=== PATIENT | male | born 1965 | race Two or more races ===

== ENCOUNTER 2017-04-12 19:41 | Inpatient (IN) | payer OTHER, MEDICAID ==
[~2017-04-12] VITALS: Ht 152.4 cm; Wt 65.7 kg
[~2017-04-12 19:41] MED LIST: AMLO10TA2 PO; ARTISOL OP; ASPI81TA27 PO; B-CO-9 OR; CALC0.25 PO; DOCU100T15 GT; ERGO400T PO; FER325T PO; FURO80TA3 PO; LEVEMIR SC; LOSA100T27 PO; METO-158 PO; OMEG300C7 OR; SEVE800T8 PO; SIMV10TA84 PO
[2017-04-12 22:19] LABS: Basophils # (auto) 0.1 uL; Basophils % (auto) 0.6 % (0.0-2.0); Eosinophils # (auto) 0.1 uL; Eosinophils % (auto) 0.5 % (0.0-7.0); Hematocrit 30.2 % (41.0-53.0); Hemoglobin 9.8 g/dL (13.5-17.5); Lymphocytes # (auto) 1.6 uL; Mean Corpuscular Hemoglobin 29.7 pg (28.0-32.0); Mean Corpuscular Hgb Conc. 32.3 g/dL (32.0-36.0); Mean Corpuscular Volume 92.1 fL (80.0-100.0); Monocytes # (auto) 1.1 uL; Monocytes % (auto) 6.4 % (0.0-12.0); Neutrophils # (auto) 14.4 uL; Neutrophils % (auto) 83.5 % (37.0-80.0); Platelet Count (auto) 414 10^3/uL (140-450); Red Blood Cells 3.28 10^6/uL (4.5-5.90); Red Cell Distribution Width 16.4 % (11.8-14.3); White Blood Cell 17.3 10^3/uL (4.4-10.8)
[2017-04-12 22:54] LABS: Albumin 1.9 g/dL (3.4-5.0); BUN/Creatinine Ratio 4.4; Bilirubin, Total 0.9 mg/dL (0.2-1.0); Calcium 8.2 mg/dL (8.5-10.1); Magnesium 2.2 mg/dL (1.6-2.6); Potassium 3.5 mmol/L (3.5-5.1); Total Protein 7.5 g/dL (6.4-8.2)
[2017-04-13] MEDS ORDERED: ONDANSETRON HCL 4 MG/2 ML VIAL IV ONE (01:30)
[2017-04-13] MEDS ORDERED: MORPHINE SULFATE 10 MG/ML INJ 1ML SDV IV ONE (01:30)
[2017-04-13] MEDS ORDERED: VANCOMYCIN PER PHARMACY 0 MG IV SCH (05:00)
[2017-04-13] MEDS ORDERED: DEXTROSE (50%) 50ML SYRG IV PRN (05:00)
[2017-04-13] MEDS ORDERED: ONDANSETRON HCL 4 MG/2 ML VIAL IV PRN (05:00)
[2017-04-13] MEDS ORDERED: ONDANSETRON HCL 4 MG/2 ML VIAL ONE (05:21)
[2017-04-13] MEDS: MORPHINE SULFATE 10 MG/ML INJ 1ML SDV IV PRN ×3 (05:28→12:00)
[2017-04-13] MEDS ORDERED: VANCOMYCIN 1GM/250ML 250 ML IV SCH (05:30)
[2017-04-13] MEDS ORDERED: PIPERACILLIN-TAZOB 2.25GM 50 ML IV SCH (06:00)
[2017-04-13] MEDS: InsuLIN REG 1unit/0.01ml Soln (100units/ml) SC SCH ×2 (06:59→11:25)
[2017-04-13] MEDS: ACCU-CHEK COMFORT CURVE STRIP VI SCH ×2 (06:59→11:25)
[2017-04-13 07:15] LABS: Basophils # (auto) 0 uL; Basophils % (auto) 0.3 % (0.0-2.0); Eosinophils # (auto) 0 uL; Hematocrit 33.2 % (41.0-53.0); Hemoglobin 10.4 g/dL (13.5-17.5); Lymphocytes % (auto) 7.4 % (10.0-50.0); Mean Corpuscular Hemoglobin 29.3 pg (28.0-32.0); Mean Corpuscular Hgb Conc. 31.4 g/dL (32.0-36.0); Mean Corpuscular Volume 93.3 fL (80.0-100.0); Monocytes # (auto) 0.6 uL; Monocytes % (auto) 4.7 % (0.0-12.0); Neutrophils # (auto) 11.3 uL; Neutrophils % (auto) 87.6 % (37.0-80.0); Platelet Count (auto) 303 10^3/uL (140-450); Red Blood Cells 3.56 10^6/uL (4.5-5.90); Red Cell Distribution Width 16.5 % (11.8-14.3)
[2017-04-13] MEDS ORDERED: VANCOMYCIN 1GM/250ML 250 ML IV ONE (07:30)
[2017-04-13 07:47] LABS: BUN/Creatinine Ratio 4.7; Bilirubin, Total 0.8 mg/dL (0.2-1.0); Calcium 8.4 mg/dL (8.5-10.1); Potassium 4.3 mmol/L (3.5-5.1); Total Protein 7.8 g/dL (6.4-8.2)
[2017-04-13] MEDS: SEVELAMER 800 MG TAB PO SCH ×2 (08:00→12:17)
[2017-04-13] MEDS ORDERED: OMEP20CA74 PO (08:53)
[2017-04-13] MEDS ORDERED: LATA0.0015 EACHEYE (08:53)
[2017-04-13] MEDS ORDERED: ATOR20TA50 PO (08:53)
[2017-04-13] MEDS ORDERED: CINA30TA2 PO (08:53)
[2017-04-13 09:33] VITALS: BP 138/61
[2017-04-13 09:36] LABS: INR 1.32 (0.9-1.15); Partial Thromboplastin Time 30.6 sec (22.64-33.71); Prothrombin Time 14.4 sec (9.37-12.3)
[2017-04-13] MEDS ORDERED: METOPROLOL TARTRATE 50 MG TAB PO SCH (10:00)
[2017-04-13] MEDS ORDERED: LOSARTAN POTASSIUM 50 MG TAB PO SCH (10:00)
[2017-04-13] MEDS ORDERED: amLODIPine BESYLATE 5 MG TAB PO SCH (10:00)
[2017-04-13 13:20] VITALS: BP 121/69
[2017-04-13] MEDS ORDERED: INSULIN DETEMIR(LEVEMIR) 1unit/0.01ml Soln (100units/ml) SC SCH (22:00)
[2017-04-14] MEDS ORDERED: SODIUM CHL 0.9% 1000 ML BAG XX ONE (10:15)
[2017-04-14] MEDS ORDERED: EPOETIN ALFA 10,000 UNIT/1 ML VIAL IV ONE (10:15)
== END 2017-04-13 13:45 | disposition short-term general hospital (02) | DRG 919 ==
LOC: EDBD 19:41 → ER 19:41 → TELE 19:42
PROVIDERS: ADMIT Nurse Practitioner Family; ATTEND Family Medicine
DX: K91.872 Postprocedural seroma of a digestive system organ or structure following a digestive system procedure (principal); N18.6 End stage renal disease; E11.22 Type 2 diabetes mellitus with diabetic chronic kidney disease; I12.0 Hypertensive chronic kidney disease with stage 5 chronic kidney disease or end stage renal disease; R18.8 Other ascites; K86.1 Other chronic pancreatitis; J98.11 Atelectasis; T81.4XXA Infection following a procedure, initial encounter; L02.818 Cutaneous abscess of other sites; R10.9 Unspecified abdominal pain; K91.870 Postprocedural hematoma of a digestive system organ or structure following a digestive system procedure; D64.9 Anemia, unspecified; D72.829 Elevated white blood cell count, unspecified; Z79.82 Long term (current) use of aspirin; Z79.899 Other long term (current) drug therapy; Z82.49 Family history of ischemic heart disease and other diseases of the circulatory system; Z83.3 Family history of diabetes mellitus; Z90.49 Acquired absence of other specified parts of digestive tract; Z99.2 Dependence on renal dialysis; Y83.9 Surgical procedure, unspecified as the cause of abnormal reaction of the patient, or of later complication, without mention of misadventure at the time of the procedure
CPT/HCPCS: 36415; 74176; 80053; 82150; 82962; 83690; 83735; 84484; 85025; 85610; 85730; 87040; 93005; 96365; 96367; 96375; J2405; J2543

== ENCOUNTER 2017-04-17 13:31 | Inpatient (IN) | payer OTHER, MEDICAID ==
[~2017-04-17] VITALS: Ht 177.8 cm; Wt 61.0 kg
[~2017-04-17 13:31] MED LIST changes: +ATOR20TA50 PO; +CINA30TA2 PO; +LATA0.0015 EACHEYE; +OMEP20CA74 PO; -SIMV10TA84 PO
[2017-04-17] MEDS ORDERED: MORPHINE SULFATE 10 MG/ML INJ 1ML SDV IV ONE ×2 (14:30→17:45)
[2017-04-17] MEDS ORDERED: ONDANSETRON HCL 4 MG/2 ML VIAL IV ONE ×2 (14:30→17:45)
[2017-04-17 14:48] LABS: Hematocrit 27.3 % (41.0-53.0); Hemoglobin 8.6 g/dL (13.5-17.5); Mean Corpuscular Hemoglobin 29.6 pg (28.0-32.0); Mean Corpuscular Hgb Conc. 31.6 g/dL (32.0-36.0); Mean Corpuscular Volume 93.7 fL (80.0-100.0); Platelet Count (auto) 218 10^3/uL (140-450); Red Blood Cells 2.92 10^6/uL (4.5-5.90); Red Cell Distribution Width 16.6 % (11.8-14.3); White Blood Cell 6.5 10^3/uL (4.4-10.8)
[2017-04-17 14:56] LABS: Band Neutrophils % (manual) 0; Basophils % (manual) 0 (0.0-2.0); Blast Cells 0; Eosinophils % (manual) 0 (0-7); Metamyelocytes % 0; Myelocytes % 0; Promyelocytes % 0; Reactive Lymphocytes 0
[2017-04-17 15:01] LABS: INR 1.78 (0.9-1.15); Partial Thromboplastin Time 34.1 sec (22.64-33.71); Prothrombin Time 19.5 sec (9.37-12.3)
[2017-04-17 15:13] LABS: Alanine Aminotransferase 12 U/L (16-61); Alkaline Phosphatase 444 U/L (45-117); Anion Gap 13 (5-15); Aspartate Aminotransferase 17 U/L (15-37); BUN/Creatinine Ratio 5.5; Bilirubin, Total 0.4 mg/dL (0.2-1.0); Blood Urea Nitrogen 46 mg/dL (7-18); Carbon Dioxide 22 mmol/L (21-32); Chloride 98 mmol/L (98-107); GFR African American 9 mL/min; GFR Non-African American 7 mL/min; Glucose 170 mg/dL (74-106); Lipase 107 U/L (73-393); Potassium 4.2 mmol/L (3.5-5.1); Sodium 133 mmol/L (136-145); Total Protein 5.1 g/dL (6.4-8.2)
[2017-04-17 16:26] LABS: Lymphocytes % (manual) 5 (10.0-50.0); Monocytes % (manual) 2 (0-12)
[2017-04-17] MEDS ORDERED: ONDANSETRON HCL 4 MG/2 ML VIAL IV PRN (17:30)
[2017-04-17] MEDS ORDERED: MORPHINE SULF INJ 2 MG/ML SYRINGE 1ML IV PRN ×2 (17:30)
[2017-04-17] MEDS ORDERED: NITROGLYCERIN 0.4 MG SL TAB SL PRN (17:30)
[2017-04-17] MEDS ORDERED: ACETAMINOPHEN 325 MG TAB PO PRN (17:30)
[2017-04-17] MEDS ORDERED: ASPirin-EC 81 mg tab PO ONE (18:00)
[2017-04-17] MEDS ORDERED: GASTROGRAFIN 30 ML SOL ONE (18:01)
[2017-04-17] MEDS ORDERED: HYDROmorphone HCL 2 MG TAB PO ONE (19:45)
[2017-04-17] MEDS ORDERED: SODIUM CHLORIDE 0.9% 1,000 ML IV ONE (19:45)
[2017-04-17 19:55] VITALS: BP 98/66
[2017-04-17] MEDS ORDERED: PERITONEAL DIALYSIS 2.5% SOLN 2,000 ML IP ONE (20:45)
[2017-04-17] MEDS ORDERED: cefTRIAXone 1GM/10ml IVPUSH 10 ML IV ONE (21:30)
[2017-04-17] MEDS ORDERED: metroNIDAZOLE 500MG/100ML 100 ML IV ONE (21:30)
[2017-04-17] MEDS ORDERED: PIPERACILLIN-TAZOB 3.375GM 50 ML IV ONE (21:45)
[2017-04-17] MEDS ORDERED: SODIUM CHLORIDE 0.9% 1,000 ML IV SCH (21:45)
[2017-04-17 22:00] VITALS: BP 98/66
[2017-04-17] MEDS: ATORVASTATIN 20 MG TAB PO SCH (22:00)
[2017-04-17] MEDS: LATANOPROST 0.005 % OPTH(EYE) SOL 2.5ML EACHEYE SCH (22:00)
[2017-04-17] MEDS: METOPROLOL TARTRATE 50 MG TAB PO SCH (22:00)
[2017-04-17] MEDS: INSULIN LANTUS (GLARGINE) 1 /0.01ml (100units/ml) SC SCH (22:00)
[2017-04-17] MEDS: ARTIFICIAL TEARS 15ml OP SCH (22:00)
[2017-04-17] MEDS: FERROUS SULFATE 325 MG TAB PO SCH (22:00)
[2017-04-17 22:50] LABS: Albumin 1.2 g/dL (3.4-5.0); BUN/Creatinine Ratio 5.7; Calcium 7.6 mg/dL (8.5-10.1); Potassium 3.7 mmol/L (3.5-5.1)
[2017-04-17 22:51] LABS: Basophils # (auto) 0 uL; Basophils % (auto) 0.1 % (0.0-2.0); Eosinophils # (auto) 0 uL; Eosinophils % (auto) 0.1 % (0.0-7.0); Hemoglobin 10.1 g/dL (13.5-17.5); Lymphocytes # (auto) 0.4 uL; Mean Corpuscular Hemoglobin 30.3 pg (28.0-32.0); Mean Corpuscular Hgb Conc. 31.7 g/dL (32.0-36.0); Mean Corpuscular Volume 95.7 fL (80.0-100.0); Monocytes # (auto) 0.3 uL; Monocytes % (auto) 3.5 % (0.0-12.0); Neutrophils # (auto) 8.3 uL; Neutrophils % (auto) 92.3 % (37.0-80.0); Platelet Count (auto) 267 10^3/uL (140-450); Red Blood Cells 3.34 10^6/uL (4.5-5.90)
[2017-04-17 22:53] LABS: Bilirubin, Total 0.6 mg/dL (0.2-1.0); Total Protein 5.4 g/dL (6.4-8.2)
[2017-04-17 23:00] LABS: INR 1.74 (0.9-1.15); Partial Thromboplastin Time 34.8 sec (22.64-33.71); Prothrombin Time 19.1 sec (9.37-12.3)
[2017-04-17 23:40] VITALS: BP 119/96
[2017-04-18] VITALS (84 sets, daily range): BP systolic 81–145; BP diastolic 30–94
[2017-04-18] MEDS: PIPERACILLIN-TAZOB 3.375GM 50 ML IV SCH ×5 (00:50→20:36)
[2017-04-18] MEDS ORDERED: VANCOMYCIN 1GM/250ML 250 ML IV ONE (01:15)
[2017-04-18] MEDS: HYDROmorphone HCL 2 MG/ML VL IV PRN ×3 (02:05→18:44)
[2017-04-18 04:10] LABS: Platelet Count (auto) 300 10^3/uL (140-450)
[2017-04-18 04:13] LABS: Hematocrit 32.3 % (41.0-53.0); Hemoglobin 9.9 g/dL (13.5-17.5); Mean Corpuscular Hemoglobin 29.6 pg (28.0-32.0); Mean Corpuscular Hgb Conc. 30.5 g/dL (32.0-36.0); Red Blood Cells 3.33 10^6/uL (4.5-5.90); Red Cell Distribution Width 17.1 % (11.8-14.3); White Blood Cell 15.3 10^3/uL (4.4-10.8)
[2017-04-18 04:21] LABS: Basophils % (manual) 0 (0.0-2.0); Blast Cells 0; Eosinophils % (manual) 0 (0-7); Myelocytes % 0; Promyelocytes % 0; Reactive Lymphocytes 0
[2017-04-18 04:24] LABS: BUN/Creatinine Ratio 5.3; Calcium 7.5 mg/dL (8.5-10.1); Magnesium 1.8 mg/dL (1.6-2.6); Phosphorus 6.3 mg/dL (2.5-4.90); Potassium 4.3 mmol/L (3.5-5.1)
[2017-04-18] MEDS ORDERED: SODIUM BICARBONATE 8.4% INJ 50ML SYRINGE ONE (05:26)
[2017-04-18] MEDS ORDERED: phytonadione 10 MG in SODIUM CHL 0.9% 50 ML IV ONE (05:45)
[2017-04-18] MEDS ORDERED: SODIUM BICARBONATE 8.4 % INJ 50ML VIAL IV ONE (05:47)
[2017-04-18] MEDS: NOREPINEPHRINE 8 MG/250ML KIT 250 ML IV SCH (05:47)
[2017-04-18] MEDS ORDERED: SODIUM BICARBONATE 50ML VIAL 50 ML in SODIUM CHLORIDE 0.9% 1,000 ML IV SCH (06:00)
[2017-04-18] MEDS ORDERED: PHYTONADIONE (VIT K)10 MG/ML 1ML VIAL SUBCUT ONE (06:00)
[2017-04-18 06:16] LABS: Band Neutrophils % (manual) 24; Lymphocytes % (manual) 3 (10.0-50.0); Metamyelocytes % 2; Monocytes % (manual) 2 (0-12)
[2017-04-18] MEDS: metroNIDAZOLE 500MG/100ML 100 ML IV SCH ×3 (06:17→21:45)
[2017-04-18] MEDS ORDERED: HYDROmorphone HCL 2 MG/ML VL ONE (07:05)
[2017-04-18] MEDS ORDERED: fentaNYL CITRATE 0 ML ONE (07:05)
[2017-04-18] MEDS ORDERED: MIDAZOLAM HCL 1MG/1ML-2 ML VIAL ONE (07:05)
[2017-04-18] MEDS ORDERED: KETAMINE HCL 0 ML ONE (07:05)
[2017-04-18] MEDS ORDERED: fentaNYL CITRATE 100 MCG/2 ML VL ONE (07:05)
[2017-04-18] MEDS ORDERED: ROCURONIUM 10MG/ML 10ML VIAL IV ONE (07:06)
[2017-04-18] MEDS ORDERED: cefTRIAXone 1GM/10ml IVPUSH 10 ML IV SCH (09:00)
[2017-04-18] MEDS: PANTOPRAZOLE 40 MG TAB PO SCH (10:00)
[2017-04-18] MEDS ORDERED: FUROSEMIDE 20 MG TAB PO SCH (10:00)
[2017-04-18] MEDS: CALCITRIOL 0.25 MCG CAP PO SCH (10:00)
[2017-04-18] MEDS: METOPROLOL TARTRATE 50 MG TAB PO SCH ×2 (10:00→22:00)
[2017-04-18] MEDS: amLODIPine BESYLATE 5 MG TAB PO SCH (10:00)
[2017-04-18] MEDS: ARTIFICIAL TEARS 15ml OP SCH ×2 (10:00→22:00)
[2017-04-18] MEDS: ASPirin-EC 81 mg tab PO SCH (10:00)
[2017-04-18] MEDS: LOSARTAN POTASSIUM 50 MG TAB PO SCH (10:00)
[2017-04-18] MEDS ORDERED: SODIUM CHLORIDE 0.9% 1,000 ML IV ONE (10:30)
[2017-04-18] MEDS ORDERED: EPOETIN ALFA 10,000 UNIT/1 ML VIAL IV ONE (11:30)
[2017-04-18] MEDS ORDERED: PERITONEAL DIALYSIS 2.5% IP ONE (12:00)
[2017-04-18] MEDS ORDERED: GASTROGRAFIN 30 ML SOL ONE (15:08)
[2017-04-18] MEDS ORDERED: DEXTROSE (50%) 50ML SYRG IV PRN (17:45)
[2017-04-18] MEDS: InsuLIN REG 1unit/0.01ml Soln (100units/ml) SC SCH ×2 (18:00→23:59)
[2017-04-18] MEDS: ACCU-CHEK COMFORT CURVE STRIP VI SCH ×2 (18:00→23:59)
[2017-04-18] MEDS: ATORVASTATIN 20 MG TAB PO SCH (22:00)
[2017-04-18] MEDS: INSULIN LANTUS (GLARGINE) 1 /0.01ml (100units/ml) SC SCH (22:00)
[2017-04-18] MEDS: LATANOPROST 0.005 % OPTH(EYE) SOL 2.5ML EACHEYE SCH (22:00)
[2017-04-18] MEDS: FERROUS SULFATE 325 MG TAB PO SCH (22:00)
[2017-04-19] VITALS (75 sets, daily range): BP systolic 84–139; BP diastolic 38–60
[2017-04-19] MEDS: PIPERACILLIN-TAZOB 3.375GM 50 ML IV SCH ×3 (02:53→15:39)
[2017-04-19] MEDS: NOREPINEPHRINE 8 MG/250ML KIT 250 ML IV SCH (03:00)
[2017-04-19 05:03] LABS: Hematocrit 30.6 % (41.0-53.0); Hemoglobin 9.7 g/dL (13.5-17.5); Mean Corpuscular Hemoglobin 29.5 pg (28.0-32.0); Mean Corpuscular Hgb Conc. 31.8 g/dL (32.0-36.0); Mean Corpuscular Volume 92.9 fL (80.0-100.0); Platelet Count (auto) 145 10^3/uL (140-450); Red Blood Cells 3.29 10^6/uL (4.5-5.90); Red Cell Distribution Width 16.9 % (11.8-14.3); White Blood Cell 29.1 10^3/uL (4.4-10.8)
[2017-04-19 05:14] LABS: Basophils % (manual) 0 (0.0-2.0); Blast Cells 0; Metamyelocytes % 0; Myelocytes % 0; Promyelocytes % 0; Reactive Lymphocytes 0
[2017-04-19 05:18] LABS: BUN/Creatinine Ratio 5.1; Calcium 7.7 mg/dL (8.5-10.1); Potassium 4.8 mmol/L (3.5-5.1)
[2017-04-19] MEDS: HYDROmorphone HCL 2 MG/ML VL IV PRN ×2 (05:18→16:45)
[2017-04-19] MEDS: InsuLIN REG 1unit/0.01ml Soln (100units/ml) SC SCH ×3 (06:00→18:30)
[2017-04-19] MEDS: ACCU-CHEK COMFORT CURVE STRIP VI SCH ×3 (06:10→18:30)
[2017-04-19] MEDS: metroNIDAZOLE 500MG/100ML 100 ML IV SCH ×2 (06:10→14:24)
[2017-04-19 07:16] LABS: Band Neutrophils % (manual) 22; Eosinophils % (manual) 1 (0-7); Lymphocytes % (manual) 4 (10.0-50.0); Monocytes % (manual) 5 (0-12)
[2017-04-19] MEDS: amLODIPine BESYLATE 5 MG TAB PO SCH (10:00)
[2017-04-19] MEDS: LOSARTAN POTASSIUM 50 MG TAB PO SCH (10:00)
[2017-04-19] MEDS: METOPROLOL TARTRATE 50 MG TAB PO SCH (10:00)
[2017-04-19] MEDS ORDERED: VANCOMYCIN PER PHARMACY 0 MG IV SCH (10:15)
[2017-04-19] MEDS: ASPirin-EC 81 mg tab PO SCH (10:56)
[2017-04-19] MEDS: ARTIFICIAL TEARS 15ml OP SCH (10:56)
[2017-04-19] MEDS: CALCITRIOL 0.25 MCG CAP PO SCH (10:56)
[2017-04-19] MEDS: PANTOPRAZOLE 40 MG TAB PO SCH (10:56)
[2017-04-19] MEDS ORDERED: VANCOMYCIN 1GM/250ML 250 ML IV ONE (11:00)
[2017-04-19] MEDS ORDERED: PERITONEAL DIALYSIS IP ONE (14:45)
[2017-04-19] MEDS: ALBUMIN 25% 100 ML IV SCH ×2 (15:00→16:05)
== END 2017-04-19 18:48 | disposition short-term general hospital (02) | DRG 871 ==
LOC: EDBD 13:31 → EDSEX 13:31 → ER 13:31 → TELE 13:32 → TELE-WESTW 19:55 → ICU WEST 23:41
PROVIDERS: ADMIT Nurse Practitioner Acute Care; ATTEND Nurse Practitioner Acute Care
PROC: 30233L1 Transfusion of Nonautologous Fresh Plasma into Peripheral Vein, Percutaneous Approach (ICD-10-PCS; principal; 2017-04-18)
PROC: 30233K1 Transfusion of Nonautologous Frozen Plasma into Peripheral Vein, Percutaneous Approach (ICD-10-PCS; 2017-04-18)
PROC: 3E1M39Z Irrigation of Peritoneal Cavity using Dialysate, Percutaneous Approach (ICD-10-PCS; 2017-04-18)
PROC: 0D9W3ZZ Drainage of Peritoneum, Percutaneous Approach (ICD-10-PCS; 2017-04-19)
DX: A41.9 Sepsis, unspecified organism (principal); K65.2 Spontaneous bacterial peritonitis; R57.9 Shock, unspecified; I12.0 Hypertensive chronic kidney disease with stage 5 chronic kidney disease or end stage renal disease; E11.22 Type 2 diabetes mellitus with diabetic chronic kidney disease; N18.6 End stage renal disease; E87.1 Hypo-osmolality and hyponatremia; R18.8 Other ascites; E88.09 Other disorders of plasma-protein metabolism, not elsewhere classified; Z99.2 Dependence on renal dialysis; E78.5 Hyperlipidemia, unspecified; H40.9 Unspecified glaucoma; I25.10 Atherosclerotic heart disease of native coronary artery without angina pectoris; D63.8 Anemia in other chronic diseases classified elsewhere; K21.9 Gastro-esophageal reflux disease without esophagitis; Z82.49 Family history of ischemic heart disease and other diseases of the circulatory system; Z83.3 Family history of diabetes mellitus; Z90.49 Acquired absence of other specified parts of digestive tract; Z79.899 Other long term (current) drug therapy; Z79.82 Long term (current) use of aspirin
CPT/HCPCS: 36415; 36430; 36600; 71045; 74018; 74176; 80048; 80053; 82805; 82962; 83605; 83690; 83735; 84100; 84484; 85007; 85025; 85027; 85610; 85730; 86850; 86900; 86901; 87040; 87077; 87081; 87186; 87205; 89051; 90935; 96374; 96375; 96376; J0885; J2250; J2405; J2543; J3430; J3490

== ENCOUNTER 2017-05-23 17:19 | Inpatient (IN) | payer OTHER, MEDICAID ==
[~2017-05-23] VITALS: Ht 165.1 cm; Wt 54.5 kg
[2017-05-23] MEDS ORDERED: SODIUM CHLORIDE 0.9% 500 ML IVB ONE ×2 (18:48→20:17)
[2017-05-23 19:29] LABS: Eosinophils # (auto) 0 uL; Hemoglobin 8.2 g/dL (13.5-17.5); Mean Corpuscular Hemoglobin 28.8 pg (28.0-32.0)
[2017-05-23 19:31] LABS: Basophils # (auto) 0.1 uL; Basophils % (auto) 0.3 % (0.0-2.0); Hematocrit 25.7 % (41.0-53.0); Lymphocytes # (auto) 0.9 uL; Lymphocytes % (auto) 4.9 % (10.0-50.0); Mean Corpuscular Hgb Conc. 31.9 g/dL (32.0-36.0); Mean Corpuscular Volume 90.4 fL (80.0-100.0); Monocytes # (auto) 1.3 uL; Monocytes % (auto) 7.2 % (0.0-12.0); Neutrophils # (auto) 16.1 uL; Neutrophils % (auto) 87.6 % (37.0-80.0); Platelet Count (auto) 335 10^3/uL (140-450); Red Blood Cells 2.84 10^6/uL (4.5-5.90); Red Cell Distribution Width 16.8 % (11.8-14.3); White Blood Cell 18.4 10^3/uL (4.4-10.8)
[2017-05-23 19:45] LABS: INR 1.2 (0.9-1.15); Partial Thromboplastin Time 31.7 sec (22.64-33.71); Prothrombin Time 13.1 sec (9.37-12.3)
[2017-05-23 20:12] LABS: Albumin 1.1 g/dL (3.4-5.0); Bilirubin, Total 0.7 mg/dL (0.2-1.0); Calcium 7.2 mg/dL (8.5-10.1); Magnesium 1.9 mg/dL (1.6-2.6); Total Protein 6.8 g/dL (6.4-8.2)
[2017-05-23 20:16] LABS: Potassium 2.7 mmol/L (3.5-5.1)
[2017-05-23] MEDS ORDERED: ONDANSETRON HCL 4 MG/2 ML VIAL IV ONE (22:45)
[2017-05-23] MEDS ORDERED: POTASSIUM CHL 20MEQ/100ML 100 ML IV ONE (22:45)
[2017-05-23] MEDS ORDERED: MORPHINE SULFATE 4 MG/ML SYR/VIAL IV ONE (22:45)
[2017-05-23] MEDS ORDERED: cefTRIAXone 1GM/10ml IVPUSH 10 ML IV ONE (22:45)
[2017-05-23] MEDS ORDERED: CALCIUM GLUC 4.65meq/50ml D5AE 50 ML IV ONE (23:15)
[2017-05-23] MEDS ORDERED: VANCOMYCIN PER PHARMACY 0 MG IV SCH (23:15)
[2017-05-23] MEDS ORDERED: ATORVASTATIN 20 MG TAB PO ONE (23:15)
[2017-05-23] MEDS ORDERED: NITROGLYCERIN 0.4 MG SL TAB SL PRN (23:15)
[2017-05-23] MEDS ORDERED: ACETAMINOPHEN 325 MG TAB PO PRN (23:15)
[2017-05-23] MEDS ORDERED: TEMAZEPAM 15 MG CAP PO PRN (23:15)
[2017-05-23] MEDS ORDERED: ONDANSETRON HCL 4 MG/2 ML VIAL IV PRN (23:15)
[2017-05-23] MEDS ORDERED: MORPHINE SULFATE 4 MG/ML SYR/VIAL IV PRN (23:15)
[2017-05-23] MEDS ORDERED: metroNIDAZOLE 500MG/100ML 100 ML IV ONE (23:15)
[2017-05-23] MEDS ORDERED: DEXTROSE (50%) 50ML SYRG IV PRN (23:15)
[2017-05-23] MEDS ORDERED: ALBUMIN 5% 250 ML IV ONE (23:30)
[2017-05-23] MEDS ORDERED: VANCOMYCIN 1GM/250ML 250 ML IV SCH (23:45)
[2017-05-23] MEDS: SODIUM CHLORIDE 0.9% 1,000 ML IV SCH (23:49)
[2017-05-24] MEDS: POTASSIUM CHL 20MEQ/100ML 100 ML IV SCH ×2 (01:21→04:58)
[2017-05-24] MEDS: ACCU-CHEK COMFORT CURVE STRIP VI SCH ×4 (01:21→18:01)
[2017-05-24] MEDS: InsuLIN REG 1unit/0.01ml Soln (100units/ml) SC SCH ×4 (01:22→18:00)
[2017-05-24 04:27] LABS: Basophils # (auto) 0 uL; Basophils % (auto) 0.2 % (0.0-2.0); Eosinophils # (auto) 0 uL; Eosinophils % (auto) 0.2 % (0.0-7.0); Hematocrit 24.4 % (41.0-53.0); Hemoglobin 7.8 g/dL (13.5-17.5); Lymphocytes # (auto) 0.9 uL; Lymphocytes % (auto) 13.6 % (10.0-50.0); Mean Corpuscular Hemoglobin 29.6 pg (28.0-32.0); Mean Corpuscular Hgb Conc. 31.9 g/dL (32.0-36.0); Mean Corpuscular Volume 92.6 fL (80.0-100.0); Monocytes # (auto) 0.6 uL; Monocytes % (auto) 9.3 % (0.0-12.0); Neutrophils # (auto) 5.3 uL; Neutrophils % (auto) 76.7 % (37.0-80.0); Platelet Count (auto) 202 10^3/uL (140-450); Red Blood Cells 2.63 10^6/uL (4.5-5.90); Red Cell Distribution Width 17.2 % (11.8-14.3); White Blood Cell 6.9 10^3/uL (4.4-10.8)
[2017-05-24 04:44] LABS: Albumin 1.5 g/dL (3.4-5.0); Calcium 7.6 mg/dL (8.5-10.1); Potassium 3.3 mmol/L (3.5-5.1)
[2017-05-24 04:47] LABS: Bilirubin, Total 0.7 mg/dL (0.2-1.0); Total Protein 6.9 g/dL (6.4-8.2)
[2017-05-24] MEDS: HYDROcodone-ACET 5/325MG TAB PO PRN ×3 (04:53→21:23)
[2017-05-24] MEDS ORDERED: POTASSIUM CHL 20MEQ/100ML 100 ML IV ONE (04:55)
[2017-05-24] MEDS ORDERED: metroNIDAZOLE 500MG/100ML 100 ML IV SCH (06:00)
[2017-05-24] MEDS ORDERED: DEXTROSE 10% 1,000 ML IV ONE (06:45)
[2017-05-24] MEDS ORDERED: VANCOMYCIN 1GM/250ML 250 ML IV ONE (09:00)
[2017-05-24] MEDS: PANTOPRAZOLE 40 MG/10 ML VIAL IV SCH (09:23)
[2017-05-24] MEDS: SEVELAMER 800 MG TAB PO SCH ×3 (09:23→18:10)
[2017-05-24] MEDS ORDERED: FUROSEMIDE 40 MG TAB PO SCH (10:00)
[2017-05-24] MEDS: PIPERACILLIN-TAZOB 2.25GM 50 ML IV SCH ×2 (11:21→21:15)
[2017-05-24] MEDS: metroNIDAZOLE 500MG/100ML 100 ML IV SCH ×2 (14:16→18:10)
[2017-05-24] MEDS: SODIUM CHLORIDE 0.9% 1,000 ML IV SCH (15:35)
[2017-05-24 17:30] VITALS: BP 120/79
[2017-05-24] MEDS: ATORVASTATIN 20 MG TAB PO SCH (21:14)
[2017-05-24 23:51] VITALS: BP 127/76
[2017-05-25] MEDS: ACCU-CHEK COMFORT CURVE STRIP VI SCH ×4 (00:23→19:00)
[2017-05-25] MEDS ORDERED: MORPHINE SULFATE 4 MG/ML SYR/VIAL IV PRN (01:15)
[2017-05-25] MEDS: metroNIDAZOLE 500MG/100ML 100 ML IV SCH ×3 (02:53→18:59)
[2017-05-25 03:52] VITALS: BP 101/66
[2017-05-25] MEDS: InsuLIN REG 1unit/0.01ml Soln (100units/ml) SC SCH ×4 (05:32→18:00)
[2017-05-25 07:14] LABS: BUN/Creatinine Ratio 5.7; Bilirubin, Total 0.6 mg/dL (0.2-1.0); Calcium 7.4 mg/dL (8.5-10.1); Potassium 3.7 mmol/L (3.5-5.1); Total Protein 5.5 g/dL (6.4-8.2)
[2017-05-25] MEDS: SEVELAMER 800 MG TAB PO SCH ×3 (08:02→19:00)
[2017-05-25] MEDS: SODIUM CHLORIDE 0.9% 1,000 ML IV SCH (08:50)
[2017-05-25] MEDS: PANTOPRAZOLE 40 MG/10 ML VIAL IV SCH (10:59)
[2017-05-25] MEDS: PIPERACILLIN-TAZOB 2.25GM 50 ML IV SCH ×2 (10:59→22:00)
[2017-05-25 11:46] VITALS: BP 105/72
[2017-05-25] MEDS: HYDROcodone-ACET 5/325MG TAB PO PRN (13:31)
[2017-05-25 15:51] VITALS: BP 124/68
[2017-05-25 16:50] VITALS: BP 120/77
[2017-05-25 21:30] VITALS: BP 131/90
[2017-05-25] MEDS: ATORVASTATIN 20 MG TAB PO SCH (22:43)
== END 2017-05-25 23:57 | disposition short-term general hospital (02) | DRG 871 ==
LOC: EDUNIT# 17:19 → EDBD 17:19 → ER 17:38 → TELE 17:39 → DOU IN ICU 05-24 17:12 → TELE-WESTW 05-25 16:18
PROVIDERS: ADMIT Nurse Practitioner; ATTEND Family Medicine
DX: A41.9 Sepsis, unspecified organism (principal); K65.9 Peritonitis, unspecified; J18.1 Lobar pneumonia, unspecified organism; E11.22 Type 2 diabetes mellitus with diabetic chronic kidney disease; I12.0 Hypertensive chronic kidney disease with stage 5 chronic kidney disease or end stage renal disease; N18.6 End stage renal disease; D63.1 Anemia in chronic kidney disease; E87.6 Hypokalemia; F32.9 Major depressive disorder, single episode, unspecified; F41.9 Anxiety disorder, unspecified; K21.9 Gastro-esophageal reflux disease without esophagitis; G47.00 Insomnia, unspecified; R09.02 Hypoxemia; Z79.4 Long term (current) use of insulin; Z82.49 Family history of ischemic heart disease and other diseases of the circulatory system; Z83.3 Family history of diabetes mellitus; Z90.49 Acquired absence of other specified parts of digestive tract; Z93.3 Colostomy status; Z99.2 Dependence on renal dialysis; Z79.899 Other long term (current) drug therapy; Z71.3 Dietary counseling and surveillance; Z93.2 Ileostomy status
CPT/HCPCS: 36415; 71045; 74176; 80053; 80202; 82962; 83605; 83735; 84484; 85025; 85610; 85730; 87040; 87077; 87081; 87186; 87205; 93005; 94761; 96365; 96367; 96375; C9113; J0610; J2405; J2543; J3480; J3490